=== PATIENT | female | born 1960 | race Caucasian/White ===

== ENCOUNTER 2022-02-06 21:38 | Emergency (ER) | payer BC ==
--- OUTSIDE RECORDS SUMMARY | 2022-02-06 21:42 | XMS REPORT | Continuity of Care Document ---
:[address] [facility] t Address [address] [place] [address] Care Team Providers Name Role Phone Taqi_T Attending Clinician Unavailable Davar_P Attending Clinician Unavailable Noel_M Attending Clinician Unavailable CLAUDIA DOBBS P.A. Attending Clinician Unavailable RUSLAN BLOUNT M.D. Attending Clinician Unavailable RUSLAN BLOUNT Attending Clinician Unavailable Taqi_T Admitting Clinician Unavailable Davar_P Admitting Clinician Unavailable Noekevin_M Admitting Clinician Unavailable Payers Payer Name Policy Type Policy Number Effective Date Expiration Date Twan mcdon[place] [id number] 2017 00:00:00 Problems Condition Condition Condition Status Onset Resolution Last Treating Co mments Source Name Details Category Date Date Treatment Clinician Date Anxiety Anxiety Problem Active [facility] 1-26 Family 00:00: Practic 00 e Insomnia Insomnia Problem Active [facility] 3-21 Family 00:00: Practic 00 e Benign Benign Problem Active [facility] essential Essential 12-23 Fami ly hypertensi Hypertensi 00:00: Pr actic on on e History of History of Problem Resolve [facility] High blood High blood d Ph ysici pressure pressure ans History of History of Problem Resolve [facility] Osteoporos Osteoporos d Ph ysici is is ans Right knee Right knee Problem Active U T pain pain Physici ans Britt Britt Problem Active [facility] cyst, left cyst, left Ph ysici ans Status Status Problem Active [facility] post right post right Ph ysici knee knee ans replacemen replacemen t t Primary Primary Problem Active [facility] localized 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 Family History Family Member Diagnosis Comments Start Date Stop Date Source natural son Family history of Overdose [facility] Mother Family history of Cancer [facility] Mother Family history of malignant [facility] neoplasm Mother Family history of [facility] hypertension Brother Family history of High [facility] blood pressure Brother Family history of Heart [facility] trouble Brother Family history of liver [facility] disease Social History Smoking Status Start Date Stop Date Source Former Smoker [facility] marianne Smokes tobacco daily (finding) [facility] Medications Ordered Filled Start Stop Current Ordering Indication Dosage Frequency Signature Comments Components Source Medication Medication Date Date Medication? Clinician (SIG) Name Name traMADol traMADol 2020-0 Yes RUSLAN 1 TO 2 UT HCl - 50 MG HCl - 50 MG 5-04 [facility] TABLET Physici Oral Tablet Oral Tablet 00:00: M.D. EVERY 6-8 ans 00 HOURS PRN PN traMADol traMADol 2020-0 Yes RUSLAN TAKE 1 UT HCl - 50 MG HCl - 50 MG 4-06 [facility] TABLET Physici Oral Tablet Oral Tablet 00:00: M.D. EVERY 4 TO ans 00 6 HOURS NEEDED FOR PAIN. Celecoxib Celecoxib 2020-0 Yes RUSLAN QD TAKE 1 U T 200 MG Oral 200 MG Oral 3-31 [facility] CAPSULE Physici Capsule Capsule 00:00: M.D. DAILY ans 00 NEEDED. Cephalexin Cephalexin 2020-0 Yes RUSLAN Q0.3333D TAKE 1 UT 500 MG Oral 500 MG Oral 3-16 [facility] CAPSULE 3 Physici Capsule Capsule 00:00: M.D. TIMES ans 00 DAILY. HYDROcodone HYDROcodone 2020-0 Yes RUSLAN 1 Q4H TAKE 1 UT -Acetaminop -Acetaminop 3-11 [facility]RE[facility]HAND TABLET Physici hen 10-325 hen 10-325 00:00: M.D. EVERY 4 ans MG Oral MG Oral 00 HOURS Tablet Tablet alprazolam alprazolam No alprazolam [facility] 0.5 mg 0.5 mg 0.5 mg Family tablet TAKE tablet TAKE tablet Practic 1 TABLET BY 1 TABLET BY TAKE 1 e MOUTH TWICE MOUTH TWICE TABLET BY DAILY DAILY MOUTH NEEDED NEEDED TWICE DAILY NEEDED amlodipine amlodipine No amlodipine [facility] 10 mg 10 mg 10 mg Family tablet Take tablet Take tablet Practic 1 tablet 1 tablet Take 1 e every day every day tablet by oral by oral every day route. route. by oral route. hydrochloro hydrochloro No 1capsul Q1D hydrochlor [facility] thiazide thiazide e(s) othiazide Fa rosa 12.5 mg 12.5 mg 12.5 mg Practi c capsule capsule capsule e Take 1 Take 1 Take 1 capsule capsule capsule every day every day every day by oral by oral by oral route. route. route. lisinopril lisinopril No lisinopril [facility] 40 mg 40 mg 40 mg Family tablet Take tablet Take tablet Practic 1 tablet 1 tablet Take 1 e every day every day tablet by oral by oral every day route for route for by oral 90 days. 90 days. route for 90 days. nitrofurant nitrofurant No nitrofuran [facility] oin oin toin Family monohydrate monohydrate monohydrat Practic /macrocryst /macrocryst e/macrocry e als 100 mg als 100 mg stals 100 capsule capsule mg capsule Take 1 Take 1 Take 1 capsule capsule capsule every 12 every 12 every 12 hours by hours by hours by oral route oral route oral route with meals with meals with meals for 7 days. for 7 days. for 7 days. Tylenol Tylenol Yes UT TABS TABS Physici ans Advil TABS Advil TABS Yes [facility] ans Lisinopril Lisinopril Yes UT 40 MG Oral 40 MG Oral Phy sici Tablet Tablet ans amLODIPine amLODIPine Yes UT Besylate 5 Besylate 5 Phy sici MG Oral MG Oral ans Tablet Tablet Glucosamine Glucosamine Yes U T -Chondroiti -Chondroiti P hysici n TABS n TABS ans Vital Signs Vital Name Observation Time Observation Value Comments Source BP Diastolic 2022-01-06 00:00:00 91 mm[Hg] [facility] Height 2022-01-06 00:00:00 65 [in_i] [facility] BMI (Body Mass 2022-01-06 00:00:00 21.6 kg/m2 [facility] BP Systolic 2022-01-06 00:00:00 151 mm[Hg] [facility] Body Weight 2022-01-06 00:00:00 130 [lb_av] [facility] BP Diastolic 2022-01-01 00:00:00 95 mm[Hg] [facility] Height 2022-01-01 00:00:00 65 [in_i] [facility] BMI (Body Mass 2022-01-01 00:00:00 21.5 kg/m2 [facility] BP Systolic 2022-01-01 00:00:00 119 mm[Hg] [facility] Body Weight 2022-01-01 00:00:00 129 [lb_av] [facility] BP Diastolic 2021-12-18 00:00:00 105 mm[Hg] [facility] Height 2021-12-18 00:00:00 65 [in_i] [facility] BMI (Body Mass 2021-12-18 00:00:00 21.8 kg/m2 [facility] BP Systolic 2021-12-18 00:00:00 165 mm[Hg] [facility] Body Weight 2021-12-18 00:00:00 131 [lb_av] [facility] BP Diastolic 2020-10-02 00:00:00 94 mm[Hg] [facility] Height 2020-10-02 00:00:00 65 [in_i] [facility] BMI (Body Mass 2020-10-02 00:00:00 22.5 kg/m2 [facility] BP Systolic 2020-10-02 00:00:00 138 mm[Hg] [facility] Body Weight 2020-10-02 00:00:00 135 [lb_av] [facility] BP Diastolic 2020-07-26 00:00:00 76 mm[Hg] [facility] Height 2020-07-26 00:00:00 65 [in_i] [facility] BMI (Body Mass 2020-07-26 00:00:00 22.9 kg/m2 [facility] BP Systolic 2020-07-26 00:00:00 116 mm[Hg] [facility] Body Weight 2020-07-26 00:00:00 137.6 [lb_av] [facility] BP Diastolic 2020-04-16 00:00:00 92 mm[Hg] [facility] Height 2020-04-16 00:00:00 65 [in_i] [facility] BMI (Body Mass 2020-04-16 00:00:00 22.7 kg/m2 [facility] BP Systolic 2020-04-16 00:00:00 133 mm[Hg] [facility] Body Weight 2020-04-16 00:00:00 136.6 [lb_av] [facility] Height 2019-12-01 00:00:00 65 [in_i] [facility] BMI (Body Mass 2019-12-01 00:00:00 21.6 kg/m2 [facility] Body Weight 2019-12-01 00:00:00 130 [lb_av] [facility] BP Diastolic 2019-10-19 00:00:00 104 mm[Hg] [facility] Height 2019-10-19 00:00:00 65 [in_i] [facility] BMI (Body Mass 2019-10-19 00:00:00 22.1 kg/m2 [facility] BP Systolic 2019-10-19 00:00:00 156 mm[Hg] [facility] Body Weight 2019-10-19 00:00:00 133 [lb_av] [facility] BP Diastolic 2019-07-06 00:00:00 97 mm[Hg] [facility] Height 2019-07-06 00:00:00 65 [in_i] [facility] BMI (Body Mass 2019-07-06 00:00:00 22.9 kg/m2 [facility] BP Systolic 2019-07-06 00:00:00 149 mm[Hg] [facility] Body Weight 2019-07-06 00:00:00 137.8 [lb_av] [facility] BP Diastolic 2019-02-14 00:00:00 88 mm[Hg] [facility] Height 2019-02-14 00:00:00 65 [in_i] [facility] BMI (Body Mass 2019-02-14 00:00:00 20.2 kg/m2 [facility] BP Systolic 2019-02-14 00:00:00 136 mm[Hg] [facility] Body Weight 2019-02-14 00:00:00 121.6 [lb_av] [facility] BP Diastolic 2018-08-17 00:00:00 80 mm[Hg] [facility] Height 2018-08-17 00:00:00 65 [in_i] [facility] BMI (Body Mass 2018-08-17 00:00:00 23.3 kg/m2 [facility] BP Systolic 2018-08-17 00:00:00 134 mm[Hg] [facility] Body Weight 2018-08-17 00:00:00 140 [lb_av] [facility] Body height 2019-09-26 10:09:00 64 [in_us] [facility] Weight 2019-09-26 10:09:00 130 [lb_av] [facility] Body mass index 2019-09-26 10:09:00 22.31 kg/m2 [facility] (BMI) [Ratio] BP Diastolic 2017-08-12 00:00:00 84 mm[Hg] [facility] Height 2017-08-12 00:00:00 65 [in_i] [facility] BMI (Body Mass 2017-08-12 00:00:00 23.1 kg/m2 [facility] BP Systolic 2017-08-12 00:00:00 126 mm[Hg] [facility] Body Weight 2017-08-12 00:00:00 139 [lb_av] [facility] BP Diastolic 2017-05-14 00:00:00 100 mm[Hg] [facility] Height 2017-05-14 00:00:00 65 [in_i] [facility] BMI (Body Mass 2017-05-14 00:00:00 23.5 kg/m2 [facility] BP Systolic 2017-05-14 00:00:00 136 mm[Hg] [facility] Body Weight 2017-05-14 00:00:00 141.4 [lb_av] [facility] BP Diastolic 2017-02-02 00:00:00 88 mm[Hg] [facility] Height 2017-02-02 00:00:00 65 [in_i] [facility] BMI (Body Mass 2017-02-02 00:00:00 23.4 kg/m2 [facility] BP Systolic 2017-02-02 00:00:00 125 mm[Hg] [facility] Body Weight 2017-02-02 00:00:00 140.8 [lb_av] [facility] BP Diastolic 2016-11-10 00:00:00 84 mm[Hg] [facility] Height 2016-11-10 00:00:00 65 [in_i] [facility] BMI (Body Mass 2016-11-10 00:00:00 23.4 kg/m2 [facility] BP Systolic 2016-11-10 00:00:00 132 mm[Hg] [facility] Body Weight 2016-11-10 00:00:00 140.6 [lb_av] [facility] BP Diastolic 2015-05-23 00:00:00 102 mm[Hg] [facility] Height 2015-05-23 00:00:00 65 [in_i] [facility] BMI (Body Mass 2015-05-23 00:00:00 23.90 kg/m2 [facility] BP Systolic 2015-05-23 00:00:00 170 mm[Hg] [facility] Body Weight 2015-05-23 00:00:00 143.6 [lb_av] [facility] BP Diastolic 2014-06-01 00:00:00 101 mm[Hg] [facility] Height 2014-06-01 00:00:00 65 [in_i] [facility] BMI (Body Mass 2014-06-01 00:00:00 23.83 kg/m2 [facility] BP Systolic 2014-06-01 00:00:00 158 mm[Hg] [facility] Body Weight 2014-06-01 00:00:00 143.2 [lb_av] [facility] BP Diastolic 2014-03-31 00:00:00 90 mm[Hg] [facility] Height 2014-03-31 00:00:00 65 [in_i] [facility] BMI (Body Mass 2014-03-31 00:00:00 24.30 kg/m2 [facility] BP Systolic 2014-03-31 00:00:00 130 mm[Hg] [facility] Body Weight 2014-03-31 00:00:00 146 [lb_av] [facility] BP Diastolic 2013-12-23 00:00:00 98 mm[Hg] [facility] Height 2013-12-23 00:00:00 64.5 [in_i] [facility] BMI (Body Mass 2013-12-23 00:00:00 23.32 kg/m2 [facility] BP Systolic 2013-12-23 00:00:00 120 mm[Hg] [facility] Body Weight 2013-12-23 00:00:00 138 [lb_av] [facility] BP Diastolic 2013-10-21 00:00:00 70 mm[Hg] [facility] Height 2013-10-21 00:00:00 64.5 [in_i] [facility] BMI (Body Mass 2013-10-21 00:00:00 23.15 kg/m2 [facility] BP Systolic 2013-10-21 00:00:00 118 mm[Hg] [facility] Body Weight 2013-10-21 00:00:00 137 [lb_av] [facility] BP Diastolic 2013-08-19 00:00:00 100 mm[Hg] [facility] Height 2013-08-19 00:00:00 64.5 [in_i] [facility] BMI (Body Mass 2013-08-19 00:00:00 23.15 kg/m2 [facility] BP Systolic 2013-08-19 00:00:00 170 mm[Hg] [facility] Body Weight 2013-08-19 00:00:00 137 [lb_av] [facility] BP Diastolic 2013-07-19 00:00:00 102 mm[Hg] [facility] Height 2013-07-19 00:00:00 64.5 [in_i] [facility] BMI (Body Mass 2013-07-19 00:00:00 23.32 kg/m2 [facility] BP Systolic 2013-07-19 00:00:00 148 mm[Hg] [facility] Body Weight 2013-07-19 00:00:00 138 [lb_av] [facility] BP Diastolic 2013-06-08 00:00:00 94 mm[Hg] [facility] Height 2013-06-08 00:00:00 64.5 [in_i] [facility] BMI (Body Mass 2013-06-08 00:00:00 23.02 kg/m2 [facility] BP Systolic 2013-06-08 00:00:00 142 mm[Hg] [facility] Body Weight 2013-06-08 00:00:00 136.2 [lb_av] [facility] BP Diastolic 2013-05-27 00:00:00 82 mm[Hg] [facility] BP Systolic 2013-05-27 00:00:00 130 mm[Hg] [facility] Height 2013-05-27 00:00:00 64 [in_i] [facility] BMI (Body Mass 2013-05-27 00:00:00 23.72 kg/m2 [facility] Body Weight 2013-05-27 00:00:00 138.2 [lb_av] [facility] BP Diastolic 2012-10-27 00:00:00 88 mm[Hg] [facility] Height 2012-10-27 00:00:00 64 [in_i] [facility] BMI (Body Mass 2012-10-27 00:00:00 24.20 kg/m2 [facility] BP Systolic 2012-10-27 00:00:00 134 mm[Hg] [facility] Body Weight 2012-10-27 00:00:00 141 [lb_av] [facility] BP Diastolic 2012-10-05 00:00:00 84 mm[Hg] [facility] Height 2012-10-05 00:00:00 64 [in_i] [facility] BMI (Body Mass 2012-10-05 00:00:00 24.37 kg/m2 [facility] BP Systolic 2012-10-05 00:00:00 132 mm[Hg] [facility] Body Weight 2012-10-05 00:00:00 142 [lb_av] [facility] BP Diastolic 2012-06-16 00:00:00 85 mm[Hg] [facility] Height 2012-06-16 00:00:00 64 [in_i] [facility] BMI (Body Mass 2012-06-16 00:00:00 24.37 kg/m2 [facility] BP Systolic 2012-06-16 00:00:00 136 mm[Hg] [facility] Body Weight 2012-06-16 00:00:00 142 [lb_av] [facility] Procedures Procedure Date / Time Performed Performing Clinician Sourc e Post Op Promis 29 Survey 2019-08-23 00:00:00 [facility] of Knee [facility] History of Hysterectomy [facility] Encounters Start End Encounter Admission Attending Care Care Encounter Source Date/Time Date/Time Type Type Clinicians Facility Department ID 2022-01-06 2022-01-06 Outpatient Taqi_T VFP [facility] [id number] [facility] 00:00:00 00:00:00 0815 Family Practic e 2022-01-06 2022-01-06 Yasemin P [place] - [id number] [facility] 00:00:00 00:00:00 MD Jad: [facility] ly [address] Medical - Pracdebbie Chavira VM_HOU_Cy[address], [address] [address] , Ph. 2022-01-01 2022-01-01 Outpatient Davar_P VFP VFP [id number] [facility] 00:00:00 00:00:00 0810 Family Practic e 2022-01-01 2022-01-01 Yasemin VFP [place] - [id number] [facility] 00:00:00 00:00:00 MD Jad: [facility] ly [address] Medical - Pracdebbie PHILLIPS_HOU_[address], [address] [address] , Ph. 2021-12-18 2021-12-18 Outpatient Davar_P VFP VFP [id number] [facility] 00:00:00 00:00:00 0727 Family Practic e 2021-12-18 2021-12-18 Yasemin VFP [place] - [id number] [facility] 00:00:00 00:00:00 MD Jad: [facility] ly [address] [facility] VM_HOU_Cypr e sandra Davis, [address] [address] , Ph. 2021-12-12 2021-12-12 Outpatient VFP VFP [id number] [facility] 01:16:00 01:16:00 0724 Family Practic e 2021-12-12 2021-12-12 Outpatient Davar_P VFP VFP [id number] [facility] 00:00:00 00:00:00 0721 Family Practic e 2021-06-05 2021-06-05 Outpatient Davar_P VFP VFP [id number] [facility] 03:24:00 03:24:00 0112 Family Practic e 2020-10-09 2020-10-09 Outpatient Noel_M VFP VFP [id number] [facility] 04:17:00 04:17:00 0518 Family Practic e 2020-10-02 2020-10-02 Outpatient Noel_M VFP VFP [id number] [facility] 05:08:00 05:08:00 0511 Family Practic e 2020-10-02 2020-10-02 Joel VFP [place] - [id number] [facility] 00:00:[facility] 00:00:00 [facility] AUDIO PRODUCTION ENGINE[facility]: [address] Medical - Pract ramon PHILLIPS_HOU_Cypr [address], [address] [address] , Ph. 2020-07-28 2020-07-28 Outpatient Noel_M VFP VFP [id number] [facility] 01:14:00 01:14:00 0306 Family Practic e 2020-07-28 2020-07-28 Outpatient VFP VFP [id number] [facility] 01:14:00 01:14:00 0309 Family Practic e 2020-07-28 2020-07-28 Outpatient VFP VFP [id number] [facility] 01:14:00 01:14:00 0510 Family Practic e 2020-07-26 2020-07-26 Outpatient Noel_M VFP VFP [id number] [facility] 05:47:00 05:47:00 0304 Family Practic e 2020-07-26 2020-07-26 Yasemin VFP [place] - [id number] [facility] 00:00:00 00:00:00 MD Jad: [facility] ly [address] Medical - Practi aníbal PHILLIPS_HOU_Cypr [address], [address] [address] , Ph. 2020-04-17 2020-04-17 Outpatient VFP VFP [id number] 021 [facility] 10:43:00 10:43:00 0303 Family Practic e 2020-04-17 2020-04-17 Outpatient Noel_M VFP VFP [id number] [facility] 10:43:00 10:43:00 1124 Family Practic e 2020-04-16 2020-04-16 Outpatient Noel_M VFP VFP [id number] [facility] 09:59:00 09:59:00 1123 Family Practic e 2020-04-16 2020-04-16 Prashant VFP [place] - [id number] [facility] 00:00:00 00:00:00 Kamron [facility] Family Yuri Harris - Pracdebbie spangler MD: [address] NERI[address]ka Chavira [facility], [address], [place] [address] , Ph. 2019-12-06 2019-12-06 Outpatient Noel_M VFP VFP [id number] [facility] 12:18:00 12:18:00 0714 Family Practic e 2019-12-06 2019-12-06 Outpatient VFP VFP [id number] [facility] 12:18:00 12:18:00 1121 Family Practic e 2019-12-01 2019-12-01 Outpatient Noel_M VFP VFP [id number] [facility] 03:16:00 03:16:00 0709 Family Practic e 2019-12-01 2019-12-01 Geoff VFP [place] - [id number] [facility] 00:00:00 00:00:00 Pauly [facility] : [address] Medical - Pracalejandra [facility] [address] [address] , Ph. 2019-11-11 2019-11-11 Outpatient Noel_M VFP VFP [id number] [facility] 12:43:00 12:43:00 0619 Family Practic e 2019-10-26 2019-10-26 Outpatient Noel_M VFP VFP [id number] [facility] 04:15:00 04:15:00 0603 Family Practic e 2019-10-20 2019-10-20 Outpatient Noel_M VFP VFP [id number] [facility] 03:03:00 03:03:00 0528 Family Practic e 2019-10-20 2019-10-20 Outpatient VFP VFP [id number] [facility] 03:03:00 03:03:00 0601 Family Practic e 2019-10-19 2019-10-19 Outpatient Noel_M VFP VFP [id number] [facility] 05:20:00 05:20:00 0527 Family Practic e 2019-10-19 2019-10-19 Pushpa VFP [place] - [id number] [facility] 00:00:00 00:00:00 Hebert Ramirez PA: [address] Medical - Pract ic Fan VM_HOU_Cypr [address] , [facility] [address], [place] [address] , Ph. 2019-09-28 2019-09-[facility] [id number] [place] 09:45:00 09:45:00 t; CLAUDIA DOBBS [facility] lida TAYLOR, PGabrielle delarosa P.ASandeep 2019-09-26 2019-09-26 [facility] [id number] [place] 09:30:00 09:30:00 t; CLAUDIA DOBBS [facility] Andres Braun [place] P.ASandeep 2019-08-17 2019-08-17 [facility] [id number] [place] 09:15:00 09:15:00 t; Joana MERCER ans ADAM, M.D. 2019-08-04 2019-08-05 [facility] [id number] [facility] 06:05:00 12:06:00 RUSLAN Power [facility] 2019-08-04 2019-08-04 [facility] [id number] [place] 08:45:00 08:45:00 t; Joana MERCER ans ADAM, M.D. 2019-08-01 2019-08-01 Outpatient Noel_M VFP VF [id number] [facility] 06:50:00 06:50:00 0313 Family Practic e 2019-07-14 2019-07-14 Outpatient Noel_M VFP VFP [id number] [facility] 10:43:00 10:43:00 0220 Family Practic e 2019-07-06 2019-07-06 Outpatient Noel_M VFP VFP [id number] [facility] 06:03:00 06:03:00 0212 Family Practic e 2019-07-06 2019-07-06 Pushpa P [place] - [id number] [facility]age 00:00:00 00:00:00 Hebert Ramirez Family PA: [address] Medical - Pract ic Huffmeiste VM_HOU_Cypr e r Ryan, [facility] [address], [place] [address] , Ph. 2019-03-30 2019-03-[address] [facility] [id number] [facility] 07:19:00 07:19:00 0211 Family Practic e 2019-02-23 2019-02-23 Appointmen MINE, [facility] [id number] [place] 09:00:00 09:00:00 t; Joana MERCER ans ADAM, M.D. 2019-02-17 2019-02-17 Emergency E [address] 12:43:00 12:43:00 l [facility] 2019-02-14 2019-02-14 Prashant [facility] [place] - [id number] V illage 00:00:00 00:00:00 [facility] Miah Holcomb MD: [address] Practice - e Fan [facility] sandra Davis, [facility] [address], [place] [address] , Ph. 2018-08-17 2018-08-17 Brianna Amador [facility] [place] - [id number] [facility] 00:00:00 00:00:00 MD Gabriela: [facility] Famil y [address], Practice - e [address], [facility] [address] , Ph. 2017-08-12 2017-08-12 Zulema [facility] [place] - [id number] V illage 00:00:00 00:00:00 Dinorah Molina [facility] PA: [address], [address] [address] , Ph. 2017-05-14 2017-05-14 Ha Vargas [facility] [place] - [id number] [facility] 00:00:00 00:00:00 MD Ez: [facility] Fam catrachito [address], Practice - e [address], [facility] [address] , Ph. 2017-02-02 2017-02-02 Brianna Amador [facility] [place] - [id number] [facility] 00:00:00 00:00:00 MD Gabriela: [facility] Sho y [address] [facility], [facility] - e [address], [facility] [address] , Ph. 2016-11-10 2016-11-10 Brianna Amador [facility] [place] - [id number] [facility] 00:00:00 00:00:00 MD Gabriela: [facility] Sho y [address] [facility], Practice - e [address], [facility] [address] , Ph. Results Test Description Test Time Test Comments Results Result Comments Source Bacteria identified in Urine by Culture 2021-12-21 00:00:00 Test Item Value Reference Range Interpretation Comme nts urine culture, routine (test code = urine culture, routine) final r eport A result 1 (test code = result 1) escherichia coli A antimicrobial susceptibility (test code = antimicrobial comment susceptibility) [facility] CenterBacteria identified in Urine by [id number] 00:00:00 Test Item Value Reference Range Interpretation Comments urine culture, routine (test final report A code = urine culture, routine) result 1 (test code = result escherichia coli A 1) antimicrobial susceptibility comment (test code = antimicrobial susceptibility) [facility] CenterCB W Auto Differential panel - [id number] 00:00:00 Test Item Value Reference Range Interpretation Comments WBC (test code = WBC) 8.06 x10*3/?L 4.00-11.00 RBC (test code = RBC) 4.07 10*12/L 3.93-5.22 hemoglobin (test code = 14.20 g/dL 11.20-15.70 hemoglobin) hematocrit (test code = 42.6 % 34.1-44.9 hematocrit) MCV (test code = MCV) 104.7 fL 80.0-100.0 H MCH (test code = MCH) 34.9 pg 25.6-32.2 H MCHC (test code = MCHC) 33.3 g/dL 32.2-35.5 RDW-SD (test code = RDW-SD) 55.8 fL 36.4-46.3 H platelet count (test code = 246.0 k/uL 150.0-400.0 platelet count) MPV (test code = MPV) 9.4 fL 7.5-11.5 neut% (test code = neut%) 67.1 % 34.0-71.1 lymph% (test code = lymph%) 22.8 % 19.3-51.7 mon% (test code = mon%) 8.9 % 4.7-12.5 eos% (test code = eos%) 0.5 % 0.7-5.8 L baso% (test code = baso%) 0.6 % 0.1-1.2 neut# (test code = neut#) 5.4 x10*3/?L 1.6-6.1 lymph# (test code = lymph#) 1.8 x10*3/?L 1.2-3.7 mon# (test code = mon#) 0.7 x10*3/?L 0.2-0.9 eos# (test code = eos#) 0.04 x10*3/?L 0.04-0.36 baso# (test code = baso#) 0.05 x10*3/?L 0.01-0.08 [facility] CenterThyrotropin [Units/volume] in Serum or [id number] 00:00:00 Test Item Value Reference Range Interpretation Comments TSH (test code = TSH) 2.092 uIU/mL 0.350-4.940 [facility] CenterComprehensive metabolic 2000 panel - Serum or Plasma 2021-12-19 00:00:00 Test Item Value Reference Range Interpretation Comments ALT (test code = ALT) 26 U/L 0-55 AST (test code = AST) 33 U/L 5-34 BUN (test code = BUN) 8.4 mg/dL 9.8-25.0 L alk phos (test code = alk phos) 67 unit/L 40-150 glucose (test code = glucose) 88 mg/dL 70-99 albumin (test code = albumin) 4.7 g/dL 3.4-5.1 creatinine (test code = 0.68 mg/dL 0.57-1.11 creatinine) eGFR non- (test >60 code = eGFR non-) total bilirubin (test code = 0.7 mg/dL 0.2-1.2 total bilirubin) eGFR - (test >60 code = eGFR - ) sodium (test code = sodium) 142 mEq/L 135-145 potassium (test code = potassium) 3.9 mEq/L 3.5-5.3 chloride (test code = chloride) 104 mmol/L 98-110 total protein (test code = total 7.1 g/dL 6.1-8.2 protein) calcium (test code = calcium) 9.8 mg/dL 8.4-10.4 CO2 (test code = CO2) 24.9 mmol/L 20.0-32.0 anion gap (test code = anion gap) 13 calc [facility] CenterLipid 1996 panel - Serum or [id number] 00:00:00 Test Item Value Reference Range Interpretation Comments HDL (test code = HDL) 152 mg/dL triglyceride (test code = 41 mg/dL <150 triglyceride) VLDL (calculated) (test code = VLDL 8 mg/dL (calculated)) cholesterol/HDL ratio (test code = 1.7 mg/dL cholesterol/HDL ratio) non-HDL cholesterol (calculated) 112 mg/dL <160 (test code = non-HDL cholesterol (calculated)) cholesterol (test code = 264 mg/dL <200 H cholesterol) Cholesterol in LDL [Mass/volume] in 104 mg/dL <130 Serum or Plasma (test code = 2089-1) [facility] CenterCBC W Auto Differential panel - [id number] 00:00:00 Test Item Value Reference Range Interpretation Comments WBC (test code = WBC) 8.06 x10*3/?L 4.00-11.00 RBC (test code = RBC) 4.07 10*12/L 3.93-5.22 hemoglobin (test code = 14.20 g/dL 11.20-15.70 hemoglobin) hematocrit (test code = 42.6 % 34.1-44.9 hematocrit) MCV (test code = MCV) 104.7 fL 80.0-100.0 H MCH (test code = MCH) 34.9 pg 25.6-32.2 H MCHC (test code = MCHC) 33.3 g/dL 32.2-35.5 RDW-SD (test code = RDW-SD) 55.8 fL 36.4-46.3 H platelet count (test code = 246.0 k/uL 150.0-400.0 platelet count) MPV (test code = MPV) 9.4 fL 7.5-11.5 neut% (test code = neut%) 67.1 % 34.0-71.1 lymph% (test code = lymph%) 22.8 % 19.3-51.7 mon% (test code = mon%) 8.9 % 4.7-12.5 eos% (test code = eos%) 0.5 % 0.7-5.8 L baso% (test code = baso%) 0.6 % 0.1-1.2 neut# (test code = neut#) 5.4 x10*3/?L 1.6-6.1 lymph# (test code = lymph#) 1.8 x10*3/?L 1.2-3.7 mon# (test code = mon#) 0.7 x10*3/?L 0.2-0.9 eos# (test code = eos#) 0.04 x10*3/?L 0.04-0.36 baso# (test code = baso#) 0.05 x10*3/?L 0.01-0.08 [facility] CenterThyrotropin [Units/volume] in Serum or [id number] 00:00:00 Test Item Value Reference Range Interpretation Comments TSH (test code = TSH) 2.092 uIU/mL 0.350-4.940 [facility] CenterComprehensive metabolic 2000 panel - Serum or Plasma 2021-12-19 00:00:00 Test Item Value Reference Range Interpretation Comments ALT (test code = ALT) 26 U/L 0-55 AST (test code = AST) 33 U/L 5-34 BUN (test code = BUN) 8.4 mg/dL 9.8-25.0 L alk phos (test code = alk phos) 67 unit/L 40-150 glucose (test code = glucose) 88 mg/dL 70-99 albumin (test code = albumin) 4.7 g/dL 3.4-5.1 creatinine (test code = 0.68 mg/dL 0.57-1.11 creatinine) eGFR non- (test >60 code = eGFR non-) total bilirubin (test code = 0.7 mg/dL 0.2-1.2 total bilirubin) eGFR - (test >60 code = eGFR - ) sodium (test code = sodium) 142 mEq/L 135-145 potassium (test code = potassium) 3.9 mEq/L 3.5-5.3 chloride (test code = chloride) 104 mmol/L 98-110 total protein (test code = total 7.1 g/dL 6.1-8.2 protein) calcium (test code = calcium) 9.8 mg/dL 8.4-10.4 CO2 (test code = CO2) 24.9 mmol/L 20.0-32.0 anion gap (test code = anion gap) 13 calc [facility] CenterLipid 1996 panel - Serum or [id number] 00:00:00 Test Item Value Reference Range Interpretation Comments HDL (test code = HDL) 152 mg/dL triglyceride (test code = 41 mg/dL <150 triglyceride) VLDL (calculated) (test code = VLDL 8 mg/dL (calculated)) cholesterol/HDL ratio (test code = 1.7 mg/dL cholesterol/HDL ratio) non-HDL cholesterol (calculated) 112 mg/dL <160 (test code = non-HDL cholesterol (calculated)) cholesterol (test code = 264 mg/dL <200 H cholesterol) Cholesterol in LDL [Mass/volume] in 104 mg/dL <130 Serum or Plasma (test code = 2089-1) [facility] CenterUrinalysis macro (dipstick) panel - [id number] 14:38:00 Test Item Value Reference Range Interpretation Comments Color Color (test code = Color yellow Color) Color Appearance (test code = Color clear Appearance) Color Glucose (test code = Color negative Glucose) Color Bilirubin (test code = Color negative Bilirubin) Color Ketones (test code = Color negative Ketones) Color Specific [place] (test code = 1.015 Color Specific [place]) Color Blood (test code = Color negative Blood) Color PH (test code = Color PH) 6.5 Color Protein (test code = Color negative Protein) Color Urobilinogen (test code = 0.2 Color Urobilinogen) Color Nitrites (test code = Color negative Nitrites) Color Leukocytes (test code = Color negative Leukocytes) [facility] [place] panel - [id number] 14:38:00 Test Item Value Reference Range Interpretation Comments Color Color (test code = Color yellow Color) Color Appearance (test code = Color clear Appearance) Color Glucose (test code = Color negative Glucose) Color Bilirubin (test code = Color negative Bilirubin) Color Ketones (test code = Color negative Ketones) Color Specific [place] (test code = 1.015 Color Specific [place]) Color Blood (test code = Color negative Blood) Color PH (test code = Color PH) 6.5 Color Protein (test code = Color negative Protein) Color Urobilinogen (test code = 0.2 Color Urobilinogen) Color Nitrites (test code = Color negative Nitrites) Color Leukocytes (test code = Color negative Leukocytes) [facility] (dipstick) panel - [id number] 14:38:00 Test Item Value Reference Range Interpretation Comments Color Color (test code = Color yellow Color) Color Appearance (test code = Color clear Appearance) Color Glucose (test code = Color negative Glucose) Color Bilirubin (test code = Color negative Bilirubin) Color Ketones (test code = Color negative Ketones) Color Specific [place] (test code = 1.015 Color Specific [place]) Color Blood (test code = Color negative Blood) Color PH (test code = Color PH) 6.5 Color Protein (test code = Color negative Protein) Color Urobilinogen (test code = 0.2 Color Urobilinogen) Color Nitrites (test code = Color negative Nitrites) Color Leukocytes (test code = Color negative Leukocytes) [facility] [place] (dipstick) panel - [id number] 16:36:00 Test Item Value Reference Range Interpretation Comments Color Color (test code = Color yellow Color) Color Appearance (test code = Color cloudy Appearance) Color Glucose (test code = Color negative Glucose) Color Bilirubin (test code = Color negative Bilirubin) Color Ketones (test code = Color negative Ketones) Color Specific [place] (test code = 1.020 Color Specific [place]) Color Blood (test code = Color moderate Blood) Color PH (test code = Color PH) 6.5 Color Protein (test code = Color negative Protein) Color Urobilinogen (test code = 0.2 Color Urobilinogen) Color Nitrites (test code = Color positive Nitrites) Color Leukocytes (test code = Color moderate Leukocytes) [facility] CenterUrinalysis macro (dipstick) panel - [id number] 16:05:00 Test Item Value Reference Range Interpretation Comments Color Color (test code = Color dark yellow Color) Color Appearance (test code = cloudy Color Appearance) Color Glucose (test code = Color negative Glucose) Color Bilirubin (test code = negative Color Bilirubin) Color Ketones (test code = Color trace Ketones) Color Specific [place] (test code 1.020 = Color Specific [place]) Color Blood (test code = Color large Blood) Color PH (test code = Color PH) 5.5 Color Protein (test code = Color negative Protein) Color Urobilinogen (test code = 0.2 Color Urobilinogen) Color Nitrites (test code = Color positive Nitrites) Color Leukocytes (test code = trace Color Leukocytes) [facility] CenterAlbumin/Creatinine [Mass ratio] in [id number] 13:26:00 Test Item Value Reference Range Interpretation Comments Type Urine Microlalbumin 30 mg/L (test code = Type Urine Microlalbumin) Type Urine Creatinine (test 100 mg/dL code = Type Urine Creatinine) Type A:C Ratio (test code = <30 mg/g (Normal) Type A:C Ratio) [facility] CenterBacteria identified in Urine by [id number] 15:21:00 Test Item Value Reference Range Interpretation Comments culture, urine, routine (test code = see note A culture, urine, routine) [facility] CenterUrinalysis macro (dipstick) panel - [id number] 15:46:06 Test Item Value Reference Range Interpretation Comments Color Color (test code = Color light yellow Color) Color Appearance (test code = hazy Color Appearance) Color Glucose (test code = Color negative Glucose) Color Bilirubin (test code = negative Color Bilirubin) Color Ketones (test code = Color negative Ketones) Color Specific [place] (test 1.010 code = Color Specific [place]) Color Blood (test code = Color moderate Blood) Color PH (test code = Color PH) 5.5 Color Protein (test code = Color negative Protein) Color Urobilinogen (test code = 0.2 Color Urobilinogen) Color Nitrites (test code = positive Color Nitrites) Color Leukocytes (test code = trace Color Leukocytes) [facility] CenterBacteria identified in Urine by [id number] 15:31:00 Test Item Value Reference Range Interpretation Comments culture, urine, routine (test code = see note A culture, urine, routine) [facility] CenterBacteria identified in Urine by [id number] 16:55:00Culture, Urine, RoutineVillfrancisc[facility]
[2022-02-06 22:58] LABS: Urine Blood 2+ (Negative); Urine Glucose Negative (Negative); Urine Protein Negative (Negative)
[2022-02-06 23:01] LABS: Absolute Lymphocytes (CBC) 1.7 K/uL (0.7-4.9); Hematocrit 40.5 % (36.0-45.0); Lymphocytes % 10.7 % (15.3-44.8); MCV 100.3 fL (80-100); MPV 6.6 fL (7.6-11.3); RBC Red Blood Cell Count 4.04 M/uL (3.86-4.86)
[2022-02-06 23:02] LABS: Protime INR 0.95
[2022-02-06 23:09] LABS: Urine Bacteria <20 /HPF (<20); Urine RBC <5 /HPF (None Seen)
--- NOTE | 2022-02-06 23:18 | RAD REPORT ---
EXAM DESCRIPTION: CT - Head Brain Wo Cont - 02/06/2022 11:10 pm CLINICAL HISTORY: dizziness, headache Headache, hypertension, drowsiness COMPARISON: No comparisons TECHNIQUE: All CT scans are performed using dose optimization technique as appropriate and may inclu de automated exposure control or mA/KV adjustment according to patient size. FINDINGS: No intracranial hemorrhage, hydrocephalus or extra-axial fluid collection.No areas of brai n edema or evidence of midline shift. The paranasal sinuses and mastoids are clear. The calvarium is intact. IMPRESSION: No acute intracranial abnormality.
[2022-02-07 00:09] LABS: Potassium 3.6 mmol/L (3.5-5.1)
--- NOTE | 2022-02-07 01:10 | ER ---
Nurse's Notes [facility] Name: Sonya Bermeo Age: 61 yrs Sex: Female : 1960 Arrival Date: 02/06/2022 Time: 21:40 Bed 18 Private MD: Diagnosis: Essential (primary) hypertension;Dysuria Presentation: 02/06 21:47 Chief complaint: Patient states: "I have been having really high blood pressure, tw5 nausea, dizziness, upset stomach,". Ebola Screen: Patient negative for fever greater than or equal to 101.5 degrees Fahrenheit, and additional compatible Ebola Virus Disease symptoms Patient denies exposure to infectious person. Patient denies travel to an Ebola-affected area in the 21 days before illness onset. Initial Sepsis Screen: Does the patient meet any 2 criteria? No. Patient's initial sepsis screen is negative. Does the patient have a suspected source of infection? No. Patient's initial sepsis screen is negative. Risk Assessment: Do you want to hurt yourself or someone else? Patient reports no desire to harm self or others. 21:47 Acuity: GARRISON 3 tw5 21:47 Method Of Arrival: Wheelchair tw5 21:51 Chief complaint: Patient states: "I am seeing a new doctor and he took me off a some of tw5 medications and just put me on one. I have not felt good since Thursday. I also have a UTI that doesn't seem to be getting better.". Coronavirus screen: Vaccine status: Patient reports being unvaccinated. Onset of symptoms is unknown. Triage Assessment: 21:53 General: Appears uncomfortable, Behavior is calm, cooperative, appropriate for age. tw5 Pain: Denies pain. GI: Reports nausea. Historical: - Home Meds: 21:52 sertraline 50 mg oral tab 1 tab once daily [Active]; famotidine 20 mg Oral tab 1 tab tw5 once daily [Active]; - Immunization history:: Adult Immunizations not up to date. - Social history:: Smoking status: Patient denies any tobacco usage or history of. Screenin:15 Abuse screen: Denies threats or abuse. Denies injuries from another. Nutritional eh3 screening: No deficits noted. Tuberculosis screening: No symptoms or risk factors identified. Fall Risk None identified. Assessment: 22:15 General: Appears in no apparent distress. uncomfortable, Behavior is cooperative, eh3 appropriate for age, anxious. Neuro: Level of Consciousness is awake, alert, obeys commands, Oriented to person, place, time, situation. Cardiovascular: Capillary refill < 3 seconds Patient's skin is warm and dry. Respiratory: Airway is patent Respiratory effort is even, unlabored. GI: No signs and/or symptoms were reported involving the gastrointestinal system. : No signs and/or symptoms were reported regarding the genitourinary system. EENT: No signs and/or symptoms were reported regarding the EENT system. Derm: No signs and/or symptoms reported regarding the dermatologic system. Musculoskeletal: No signs and/or symptoms reported regarding the musculoskeletal system. 23:15 Reassessment: Patient and/or family updated on plan of care and expected duration. Pain eh3 level reassessed. Patient is alert, oriented x 3, equal unlabored respirations, skin warm/dry/pink. Vital Signs: 21:47 BP 160 / 90; Pulse 67; Resp 18; Temp 97; Pulse Ox 98% on R/A; tw5 21:51 Weight 58.97 kg; Height 5 ft. 4 in. (162.56 cm); Pain 3/10; tw5 22:40 BP 146 / 94; Pulse 61; Resp 19; Pulse Ox 99% on R/A; eh3 23:25 BP 155 / 95; Pulse 61; Resp 18; Pulse Ox 99% on R/A; eh3 02/07 01:07 BP 165 / 97 Supine; Pulse 64; kd3 01:07 BP 156 / 92 Sitting; Pulse 62; kd3 01:08 BP 159 / 92 Standing; Pulse 71; kd3 02/06 21:51 Body Mass Index 22.31 (58.97 kg, 162.56 cm) tw5 ED Course: 02/06 21:40 Patient arrived in ED. jj6 21:42 Sandra Blackwood FNP-C [facility]. kb 21:42 Cristobal Samayoa MD is Attending Physician. kb 21:51 Triage completed. tw5 21:53 Arm band placed on. tw5 22:10 Taylor Donaldson, BLAIR is Primary Nurse. eh3 22:15 Patient has correct armband on for positive identification. Placed in gown. Bed in low eh3 position. Call light in reach. Side rails up X2. Client placed on continuous cardiac and pulse oximetry monitoring. NIBP monitoring applied. Door closed. Noise minimized. Lights dimmed. Warm blanket given. 23:11 CT Head Brain wo Cont In Process Unspecified. EDMS 23:14 Inserted saline lock: 20 gauge in left antecubital area, using aseptic technique. Blood ld1 collected. 02/07 01:14 No provider procedures requiring assistance completed. IV discontinued, intact, kd3 bleeding controlled, No redness/swelling at site. Pressure dressing applied. Administered Medications: 01:10 Not Given (Patient Refused): NS 0.9% 1000 ml IV at 1000 ml once kd3 Medication: 01:14 VIS not applicable for this client. kd3 Outcome: 01:09 Discharge ordered by . saúl 01:14 Discharged to home ambulatory. kd3 01:14 Condition: stable 01:14 Condition: stable 01:14 Discharge instructions given to patient, Instructed on discharge instructions, Demonstrated understanding of instructions. 01:15 Patient left the ED. kd3 Signatures: Dispatcher [employer] EDPA Sandra Blackwood, HAIR TINTER-C HAIR TINTER-Myrna Luna, RN RN ld1 Suzanna Rolle tw5 Jazmin Iraheta6 Rox Hernandez RN RN kd3 Taylor Donaldson, RN RN eh3 Corrections: (The following items were deleted from the chart) 02/06 21:53 21:51 Chief complaint: Patient states: "I am seeing a new doctor and he took me off a tw5 some of medications and just put me on one. I have not felt good since Thursday." tw5
--- NOTE | 2022-02-07 01:10 | EDPHYS ---
Physician Documentation [facility] Name: Sonya Bermeo Age: 61 yrs Sex: Female : 1960 Arrival Date: 02/06/2022 Time: 21:40 Bed 18 Private MD: ED Physician Cristobal Samayoa HPI: 02/07 00:54 This 61 yrs old Female presents to ER via Wheelchair with complaints of High Blood kb Pressure. 00:54 The patient has elevated blood pressure and discovered this at home, with a home kb device. Onset: The symptoms/episode began/occurred 5 day(s) ago. Modifying factors: The symptoms are aggravated by change in medication. Associated signs and symptoms: Pertinent positives: dizziness, headache, nausea. Severity of symptoms: At its worst the blood pressure was moderate. The patient has experienced similar episodes in the past, a few times. The patient has been recently seen by a physician:. Patient reports she has been feeling well since Thursday. Reports dizziness, nausea, headache, elevated blood pressure. Reports PCP changed medication for blood pressure on Thursday and is not keeping her blood pressure controlled. Pt also reports dysuria. States she has taken a course of macrobid without relief and is now on bactrim, but burning with urination continues. Historical: - Home Meds: 02/06 21:52 sertraline 50 mg oral tab 1 tab once daily [Active]; famotidine 20 mg Oral tab 1 tab tw5 once daily [Active]; - Immunization history:: Adult Immunizations not up to date. - Social history:: Smoking status: Patient denies any tobacco usage or history of. ROS: 02/07 00:53 Constitutional: Negative for fever, chills, and weight loss. kb Abdomen/GI: Positive for nausea, Negative for abdominal pain, vomiting, diarrhea. Neuro: Positive for dizziness, headache. All other systems are negative. Exam: 00:44 Constitutional: This is a well developed, well nourished patient who is awake, alert, kb and in no acute distress. Head/Face: Normocephalic, atraumatic. ENT: Moist Mucous membranes Cardiovascular: Regular rate and rhythm with a normal S1 and S2. No gallops, murmurs, or rubs. No pulse deficits. Respiratory: Respirations even and unlabored. No increased work of breathing. Talking in full sentences Abdomen/GI: Soft, non-tender. No distention Skin: Warm, dry with normal turgor. Normal color. MS/ Extremity: Pulses equal, no cyanosis. Neurovascular intact. Full, normal range of motion. Neuro: Awake and alert, GCS 15, oriented to person, place, time, and situation. Moves all extremities. Normal gait. Psych: Awake, alert, with orientation to person, place and time. Behavior, mood, and affect are within normal limits. 00:44 ECG was reviewed by the Attending Physician. Vital Signs: 02/06 21:47 BP 160 / 90; Pulse 67; Resp 18; Temp 97; Pulse Ox 98% on R/A; tw5 21:51 Weight 58.97 kg; Height 5 ft. 4 in. (162.56 cm); Pain 3/10; tw5 22:40 BP 146 / 94; Pulse 61; Resp 19; Pulse Ox 99% on R/A; eh3 23:25 BP 155 / 95; Pulse 61; Resp 18; Pulse Ox 99% on R/A; 3 02/07 01:07 BP 165 / 97 Supine; Pulse 64; kd3 01:07 BP 156 / 92 Sitting; Pulse 62; kd3 01:08 BP 159 / 92 Standing; Pulse 71; kd3 02/06 21:51 Body Mass Index 22.31 (58.97 kg, 162.56 cm) tw5 MDM: 02/06 22:07 Patient medically screened. 02/07 00:44 Data reviewed: vital signs, nurses notes. Data interpreted: Pulse oximetry: on room air kb is 99 %. Interpretation: normal. 01:08 Counseling: I had a detailed discussion with the patient and/or guardian regarding: the historical points, exam findings, and any diagnostic results supporting the discharge/admit diagnosis, lab results, radiology results, the need for outpatient follow up, a family practitioner, to return to the emergency department if symptoms worsen or persist or if there are any questions or concerns that arise at home. 01:10 Data reviewed: I have discussed the patient's presentation/case with the attending Emergency Department Physician;. 02/06 22:00 Order name: Basic Metabolic Panel; Complete Time: 00:09 tw5 02/06 22:00 Order name: CBC with Diff; Complete Time: 23:05 tw5 02/06 22:00 Order name: Magnesium; Complete Time: 00:09 02/06 22:00 Order name: NT PRO-BNP; Complete Time: 00:09 02/06 22:00 Order name: PT-INR [facility] 02/06 22:00 Order name: Troponin HS; Complete Time: 00:09 02/06 22:00 Order name: EKG; Complete Time: 22:00 02/06 22:00 Order name: Cardiac monitoring; Complete Time: 22:17 [facility] 02/06 22:00 Order name: EKG - Nurse/Tech; Complete Time: 22:32 02/06 22:00 Order name: IV Saline Lock; Complete Time: 23:14 [facility] 02/06 22:00 Order name: CT Head Brain wo Cont; Complete Time: 23:20 [facility] 02/06 22:40 Order name: Urine Microscopic Only; Complete Time: 23:12 kb 02/06 22:59 Order name: Urine Dipstick-Ancillary; Complete Time: 23:03 EDMS 02/06 22:00 Order name: Labs collected and sent; Complete Time: 23:14 [facility] 02/06 22:00 Order name: O2 Per Protocol; Complete Time: 22:17 [facility] 02/06 22:00 Order name: O2 Sat Monitoring; Complete Time: 22:17 [facility] 02/06 22:40 Order name: Urine Dipstick-Ancillary (obtain specimen); Complete Time: 23:13 kb 02/07 00:10 Order name: Orthostatics; Complete Time: 01:10 kb EC:44 Rate is 63 beats/min. Rhythm is regular. QRS [place] is Normal. [place] interval is normal at kb 166 msec. QRS interval is normal at 94 msec. QT interval is normal at 462 msec. Administered Medications: 01:10 Not Given (Patient Refused): NS 0.9% 1000 ml IV at 1000 ml once kd3 Disposition: 02:16 Co-signature as Attending Physician, Cristobal Samayoa MD. rn Disposition Summary: 02/07/22 01:09 Discharge Ordered Location: Home kb Condition: Stable kb Diagnosis - Essential (primary) hypertension kb - Dysuria kb Followup: kb - With: Emergency Department - When: As needed - Reason: Worsening of condition Followup: kb - With: Private Physician - When: 2 - 3 days - Reason: Recheck today's complaints, Continuance of care, Re-evaluation by your physician Discharge Instructions: - Discharge Summary Sheet kb - Dysuria kb - Hypertension, Adult, [id number] kb - Managing Your Hypertension kb Forms: - Medication Reconciliation Form kb - Thank You Letter kb - Antibiotic Education kb - Prescription Opioid Use kb Signatures: Dispatcher [employer] EDMS Sandra Blackwood, POOL INSTALLER-C POOL INSTALLER-Cristobal Angelo MD MD rn Wood, Tiffany tw5 Rox Hernandez RN kd3 Corrections: (The following items were deleted from the chart) 01:10 00:54 Patient reports she has been feeling well since Thursday. Reports dizziness, kb nausea, headache, elevated blood pressure. Reports PCP changed medication for blood pressure on Thursday and is not keeping her blood pressure controlled.. kb
[2022-02-07] MEDS ORDERED: NA CHLORIDE 0.9% 1,000 ML ONE (01:14)
--- NOTE | 2022-02-07 12:30 | EKG ---
Test Date: 2022-02-06 Test Time: 22:26:57 Shortage Worker: ARIK MEASUREMENT RESULTS: Intervals: Rate: 63 MN: 166 QRSD: 94 QT: 452 QTc: 462 [place]: P: 67 MN: 166 QRS: 85 T: 85 INTERPRETIVE STATEMENTS: Sinus rhythm with marked sinus arrhythmia Otherwise normal ECG No previous ECG available for comparison Electronically Signed On 02-07-22 12:28:09 CDT by Marcelino Villegas
[2022-02-08 11:38] VITALS: BP 160/90; TEMP 97; O2SAT 98
== END 2022-02-07 01:15 | disposition home or self-care (01) ==
LOC: ER 21:38
DX: I10 Essential (primary) hypertension (principal); R30.0 Dysuria; R51.9 Headache, unspecified; R42 Dizziness and giddiness
CPT/HCPCS: 93005; 85025; 80048; 36415; 83735; 85610; 84484; 83880; 70450; 99284; J7030; 81003; 81015